=== PATIENT | female | born 1960 | race Caucasian/White ===

== ENCOUNTER → 2017-12-11 | Day surgery (SDC) | payer OTHER ==
[~2017-12-11] MED LIST: ASPIR 8181 MG PO; ATORVASTATIN CA80 MG PO; BENAZEPRIL HCL5 MG PO; HYDROCODONE PO; NORVASC5 MG PO; TOPROL XL25 MG PO
[2017-12-11 07:07] LABS: HEMATOCRIT 44.2 % (37.0-47.0); HEMOGLOBIN 15.2 gm/dL (12.0-15.0); MCH 30.9 pg (26.0-34.0); MCHC 34.5 g/dL (28.0-37.0); MCV 89.5 fL (80.0-100.0); MPV 9.6 fl. (7.2-11.1); RBC 4.94 mil/uL (4.20-5.00); RDW-CV 13.1 % (10.5-14.5)
[2017-12-11 07:22] LABS: POTASSIUM 3.8 mmol/L (3.5-5.1); TOTAL BILIRUBIN 0.8 mg/dL (<0.1-1.0); TOTAL PROTEIN 7.1 g/dL (6.4-8.2)
[2017-12-11 07:34] LABS: CALCIUM 9.3 mg/dL (8.5-10.1); CREATININE 0.7 mg/dL (0.6-1.3)
--- NOTE | 2017-12-11 17:38 | EKG ---
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
--- NOTE | 2017-12-12 13:58 | S ---
[place] [address] SURGICAL PATH RPT PROCEDURE Name: ANEESH RUSHING Room: [facility].#: [id number] Admission: 12/11/17 Date of : 56 Discharge: Report #: [id number] Path Case #: [id number] PATHOLOGY REPORT COLLECTION DATE: 12/11/2017 RECEIVED DATE: 12/11/2017 SUBMITTING PHYS: Dr. Jose E Winchester OTHER PHYS: Dr. Jessica Molina SPECIMEN(S) RECEIVED: A.Gallbladder * * * * * * * * * * * * FINAL DIAGNOSIS: Gallbladder: - Chronic cholecystitis and cholelithiasis with incidental benign sentinel lymph node. (NITIN:mgr; 12/12/2017) PATHOLOGIST: Elpidio Matos M.D. REPORT ELECTRONICALLY SIGNED BY: Elpidio Matos M.D. DATE/TIME: 12/12/2017 13:58 * * * * * * * * * * * * GROSS PATHOLOGY: Received in formalin labeled "Aneesh Rushing gallbladder," is a 6.8 x 3.0 x 0.8 cm, previously punctured gallbladder with light betancur, wrinkled, and vascular serosal surfaces. Opening the gallbladder reveals dark betancur, velvety mucosa and an average wall thickness of 0.2 cm. Calculi are present, measuring 0.1-0.4 cm in maximum dimension, possessing a bright yellow to dark black color, and feeling friable to the touch. No masses are noted grossly. Conduit Worker sections from the body and fundus are submitted along with the proximal margin in cassette A1. (TSD; 12/11/2017) CLINICAL HISTORY: Cholecystitis INITIAL CPT CODE(S): A; 18924 Professional services performed by [facility] at [facility], [address] [place] [address] [place] [address]. Technical services performed by [facility] at [address] [place] [address], [facility] [address] [address]. [place] [address] SURGICAL PATH RPT PROCEDURE Name: ANEESH RUSHING Room: [facility].#: [id number] Admission: 12/11/17 Date of : 56 Discharge: Report #: [id number] Path Case #: [id number] [facility] [address] [address] PHONE: [phone] DIRECTOR: Blas Giraldo M.D. * * * END OF REPORT * * *
--- NOTE | 2017-12-25 10:47 | OP ---
[address] [address] OPERATIVE REPORT Name: СЕРГЕЙANEESH Room: [facility]#: [id number] Admission: 12/11/17 Attend Phys: Jose E Winchester DO Discharge: Date of : 56 Report #: [id number] THIS REPORT FOR: //name// CC: Jose E Molina DO DICTATED BY: Adrián Marroquin DO DATE OF SERVICE: 12/11/2017 PRIMARY CARE PHYSICIAN: Jessica Molina DO. PREPROCEDURE DIAGNOSES: Right upper quadrant abdominal pain and cholecystitis. POSTPROCEDURE DIAGNOSES: Right upper quadrant abdominal pain and cholecystitis. SURGEON: Jose E Winchester DO. CO-SURGEONS: Candido Marroquin, PGY-3. DIGITAL FORENSIC ANALYST: Ketan Ruiz, MS3. OPERATIONS PERFORMED: Laparoscopic cholecystectomy with placement of Surgiflo in the gallbladder fossa. ANESTHESIA TYPE: General and local. ESTIMATED BLOOD LOSS: 30 mL. SPECIMENS REMOVED: Gallbladder and contents. COMPLICATIONS: None. HISTORY OF PRESENT ILLNESS: The patient is a pleasant 57-year-old female who presented to the office for a second time complaining of intermittent right upper quadrant pain and bloating for the past several months. She had seen us approximately 1 month ago for these same symptoms and an ultrasound showing the presence of some gallbladder sludge. The patient was hesitant to proceed with surgery, but continued to have pain, so she decided to follow through and agreed to the procedure. All risks and complications as well as the description of the procedure were discussed in detail with the patient during her office visit and reviewed details with the family as well. Risks and complications of gallbladder surgery include but are not limited to infection, bleeding, injury to the common bile duct or nearby organs, blood clot in legs, prolonged diarrhea, bile leak, neuroma or numbness near incision sites, [place] [address] OPERATIVE REPORT Name: ANEESH RUSHING Room: [facility]#: [id number] Admission: 12/11/17 Attend Phys: Jose E Winchester, DO Discharge: Date of : 56 Report #: [id number] in the incision sites, anesthesia risk and other common complications. The patient and the family voiced complete understanding and wished to proceed. DESCRIPTION OF PROCEDURE: After the appropriate consents were obtained, the patient was taken to the operating room and laid on supine position. She had SCDs placed on bilateral lower extremities. She had perioperative antibiotics given upon arriving to the OR. All lines were placed by Anesthesia at this time. She had a safety strap placed across her lap. She was then sedated and intubated by anesthesia without any difficulty. We exposed the patient's abdomen and placed her arms out on arm boards. Her abdomen was then prepped and draped in a standard sterile fashion. A timeout was performed to correctly identify the patient and procedure. We made a supraumbilical incision with a #11 blade scalpel. The subcutaneous tissue as well as any bleeding that was occurring was adequately hemolyzed. The subcutaneous tissue was then taken down until we encountered the anterior abdominal wall fascia. Once we encountered the fascia, we made a nicking incision into the fascia and grasped it between 2 January clamps. A hemostat was then used to bluntly enter the intra-abdominal cavity. Two 0 Vicryl stay sutures were placed at the inferior and superior aspect of the incision. A 5-mm Bart trocar was then introduced into the abdominal cavity. The balloon was insufflated and the camera was introduced after the belly was insufflated to 15 mmHg. Once the abdomen was insufflated, we then inspected her anterior abdominal wall organs and there did not appear to be any significant abnormalities, besides some minor adhesions in the region of her pelvis. We turned our attention back to the right upper quadrant and we placed a subxiphoid 5-mm port under direct visualization. A blunt grasper was then used to retract the omentum and access the gallbladder. The gallbladder did appear to be distended with some omental adhesions. We then placed our two 5-mm trocar ports in the right lateral abdomen. These were also placed under direct visualization. Using a locking grasper, the gallbladder was retracted cephalad and anteriorly to expose Nancy's pouch. We did have to take down some omental adhesions off the inferior aspect of the gallbladder. We did this using blunt dissection and electrocautery. This allowed us to adequately view Nancy's pouch. The Skaggs's pouch was then grasped and retracted laterally. We exposed the cystic plate on the lateral aspect of the gallbladder and when doing so, we were able to visualize the duct. The duct was dissected out and cleaned of any debris. Just posterior to this was node of Calot and directly posterior to the node of Calot was the cystic artery. We dissected out the cystic artery without any difficulty and cleaned it free of any debris. This allowed us to obtain our critical view. There were two and only two structures going into the gallbladder at that time. We placed 2 clips on the duct proximally and 1 clip distally and then placed one clip on the artery proximally and 1 clip distally. The duct and artery were then sharply incised using laparoscopic scissors. The remainder of the gallbladder [place] [address] OPERATIVE REPORT Name: ANEESH RUSHING Room: [facility]#: [id number] Admission: 12/11/17 Attend Phys: Jose E Winchester, DO Discharge: Date of : 56 Report #: [id number] the liver bed using electrocautery. There was some bleeding that was occurring from the liver bed and we placed two 5-mm Endoclips on this bleeding and achieved adequate hemostasis. We also electrocauterized the area as well. Any further bleeding that was coming from the liver bed was taken care of with electrocautery. We thoroughly irrigated using normal saline and suctioned away any free fluid. We thoroughly inspected our clips, both the duct and artery, which appeared to be intact and in place and there was no oozing from either of them. We suctioned away any free fluid from Morison's pouch and we decided to place some Surgiflo hemostatic agent in the liver bed and the gallbladder fossa. After doing so, the liver was allowed to rest in its normal anatomic position. The patient was returned to the neutral position and there was no further bleeding that was noted. We then removed our 5-mm trocars under direct visualization, with no bleeding from either the port sites. The gallbladder was then taken out through the supraumbilical incision without any difficulty. The patient's abdominal wall fascia was then reapproximated using the remainder of the 0 Vicryl suture. We placed a total of 2 more [id number] 0 Vicryl sutures. The 2 previously placed stay sutures were then tied and this allowed to achieve adequate approximation of our anterior abdominal wall fascia. The subcutaneous tissue was then closed with 3-0 inverted interrupted Vicryl suture. The skin was reapproximated using 4-0 inverted interrupted Monocryl sutures. Each of the port sites were then closed using the same fashion. Each of the incision sites were then injected using 0.5% Marcaine plain. THE PATIENT HAD AN ALLERGY TO ADHESIVE TAPE. So, we decided to put Dermabond over each of her incision sites. The patient was then allowed to awaken in the operating room and subsequently extubated. All counts were correct x 2 at the end of the procedure. Dr. Winchester was present and scrubbed for the entirety of this procedure. The patient will be transferred to the PACU and subsequently discharged later on today if she does okay with recovery. <ELECTRONICALLY SIGNED> By: Jose E Winchester DO 12/25/17 1047 1005 [id number] Winchester DO /nt
== END | disposition home or self-care (01) ==
LOC: M.SUR 06:32
PROVIDERS: Surgery
DX: K80.10 Calculus of gallbladder with chronic cholecystitis without obstruction (principal); D36.0 Benign neoplasm of lymph nodes; Z88.8 Allergy status to other drugs, medicaments and biological substances